=== PATIENT | female | born 1990 | race Caucasian/White ===

== ENCOUNTER 2016-12-18 19:39 | Emergency (ER) | payer BC ==
[~2016-12-18] VITALS: Ht 160 cm; Wt 88.6 kg
[~2016-12-18 19:39] MED LIST: ATIVAN 0.50.5 MG/TAB PO; NECON 0.5/35 351 TAB PO; TOPROL XL 25MG25 MG PO
[2016-12-18 19:41] VITALS: TEMP 98.3
[2016-12-18 21:17] LABS: BASO # 0.1 (0.0-0.2); BASO % 0.6 % (0.0-2.0); EOS # 0.1 (0.0-0.7); EOS % 1.1 % (0-4.0); GRAN # 4.2 (1.4-6.5); GRAN % 51.8 % (42.2-75.2); HEMATOCRIT 40.5 % (37.0-47.0); HEMOGLOBIN 13.9 g/dl (12.5-16.0); LYMPH # 3.4 (1.2-3.4); LYMPH % 41.5 % (20.0-51.0); MEAN CELL VOLUME 89 fl (80.0-100.0); MEAN CORPUSCULAR HEMOGLOBIN 30 pg (27.0-31.0); MEAN CORPUSCULAR HGB CONC 34 g/dl (33.0-37.0); MEAN PLATELET VOLUME 9.3 fl (7.4-10.4); MONO # 0.4 (0.1-0.6); MONO % 4.8 % (1.7-9.3); PLATELET COUNT 312 K/mm3 (130-400); RED BLOOD COUNT 4.57 M/mm3 (4.10-5.30); REDCELL DISTRIBUTION WIDTH-CV 11.8 % (11.5-14.5); WHITE BLOOD COUNT 8.1 K/mm3 (4.8-10.8)
[2016-12-18 21:32] LABS: ALANINE AMINOTRANSFERASE 24 U/L (9-52); ALBUMIN 4.7 gm/dL (3.5-5.0); ALKALINE PHOSPHATASE 94 U/L (50-136); ANION GAP 12 mmol/L (7-16); BILIRUBIN,TOTAL 0.8 mg/dL (0.0-1.0); BLOOD UREA NITROGEN 11 mg/dL (7-17); CALCIUM 9.6 mg/dL (8.4-10.2); CARBON DIOXIDE 27 mmol/L (22-30); CHLORIDE 100 mmol/L (98-107); CREATININE, serum 0.58 mg/dL (0.52-1.25); GLUCOSE 90 mg/dL (74-106); POTASSIUM 3.8 mmol/L (3.4-5.0); SODIUM 139 mmol/L (137-145); TOTAL PROTEIN 7.6 gm/dL (6.4-8.2)
[2016-12-18 21:41] LABS: C-REACTIVE PROTEIN < 0.5 mg/dL (0.0-0.9); TROPONIN-I < 0.012 ng/mL (0.000-0.034)
[2016-12-18 22:15] VITALS: BP 110/67; PULSE 70
== END 2016-12-18 22:15 | disposition home or self-care (01) ==
LOC: COL.ER 19:39
PROVIDERS: Family Medicine
DX: R07.89 Other chest pain (principal)

== ENCOUNTER → 2017-10-31 | Outpatient (CLI) | payer BC | LOC: MC.RAD 09:36 | DX: Z12.31 Encounter for screening mammogram for malignant neoplasm of breast (principal) ==

== ENCOUNTER 2018-02-09 11:29 | Emergency (ER) | payer BC ==
[~2018-02-09] VITALS: Ht 160 cm; Wt 88.2 kg
[2018-02-09 11:39] VITALS: BP 122/83; TEMP 98
[2018-02-09 12:24] LABS: COLLECTION METHOD CLEAN CATCH
[2018-02-09 12:43] LABS: PH 5 (5-8); SQUAMOUS EPITHELIAL None Seen /hpf; URINE APPEARANCE Clear; URINE BACTERIA None Seen /hpf; URINE BILIRUBIN Negative (NEGATIVE); URINE BLOOD 3+ (NEGATIVE); URINE COLOR Yellow; URINE GLUCOSE Negative (NEGATIVE); URINE KETONE Negative (NEGATIVE); URINE LEUKOCYTE ESTERASE Negative (NEGATIVE); URINE NITRATE Negative (NEGATIVE); URINE PROTEIN(semi-quant) Negative (NEGATIVE); URINE RBC >50 /hpf; URINE UROBILINOGEN Negative (NEGATIVE)
[2018-02-09 13:04] LABS: BASO # 0.1 (0.0-0.2); BASO % 0.6 % (0.0-2.0); EOS # 0.1 (0.0-0.7); EOS % 0.7 % (0-4.0); GRAN % 73.2 % (42.2-75.2); HEMATOCRIT 39.7 % (37.0-47.0); HEMOGLOBIN 13.6 g/dl (12.5-16.0); LYMPH # 2.3 (1.2-3.4); LYMPH % 20.6 % (20.0-51.0); MEAN CELL VOLUME 90 fl (80.0-100.0); MEAN CORPUSCULAR HEMOGLOBIN 31 pg (27.0-31.0); MEAN CORPUSCULAR HGB CONC 34 g/dl (33.0-37.0); MEAN PLATELET VOLUME 9.3 fl (7.4-10.4); MONO # 0.5 (0.1-0.6); MONO % 4.5 % (1.7-9.3); PLATELET COUNT 292 K/mm3 (130-400); REDCELL DISTRIBUTION WIDTH-CV 11.9 % (11.5-14.5)
[2018-02-09 13:13] LABS: ALANINE AMINOTRANSFERASE 23 U/L (9-52); ALBUMIN 4.1 gm/dL (3.5-5.0); ALKALINE PHOSPHATASE 61 U/L (50-136); ANION GAP 12 mmol/L (7-16); AST,SGOT 24 U/L (15-37); BLOOD UREA NITROGEN 14 mg/dL (7-17); C-REACTIVE PROTEIN < 0.5 mg/dL (0.0-0.9); CALCIUM 9.2 mg/dL (8.4-10.2); CARBON DIOXIDE 27 mmol/L (22-30); CHLORIDE 102 mmol/L (98-107); CREATININE, serum 0.59 mg/dL (0.52-1.25); GLUCOSE 85 mg/dL (74-106); POTASSIUM 3.8 mmol/L (3.4-5.0); SODIUM 141 mmol/L (137-145); TOTAL PROTEIN 7.8 gm/dL (6.4-8.2)
[2018-02-09 15:13] VITALS: PULSE 90
== END 2018-02-09 15:13 | disposition home or self-care (01) ==
LOC: COL.ER 11:29
PROVIDERS: Nurse Practitioner
DX: R42 Dizziness and giddiness (principal)

== ENCOUNTER → 2018-05-08 | Outpatient (CLI) | payer BC | LOC: COL.VAS 08:56 | DX: R25.2 Cramp and spasm (principal) ==

== ENCOUNTER 2019-06-08 20:01 | Observation (INO) | payer BC ==
[~2019-06-08] VITALS: Ht 160 cm; Wt 90.3 kg
[2019-06-08 20:45] LABS: BASO # 0.1 (0.0-0.2); BASO % 0.3 % (0.0-2.0); EOS # 0.1 (0.0-0.7); EOS % 0.9 % (0-4.0); GRAN # 10.8 (1.4-6.5); GRAN % 75.3 % (42.2-75.2); HEMATOCRIT 42.7 % (37.0-47.0); HEMOGLOBIN 14.8 g/dl (12.5-16.0); LYMPH # 2.8 (1.2-3.4); LYMPH % 19.3 % (20.0-51.0); MEAN CELL VOLUME 89 fl (80.0-100.0); MEAN CORPUSCULAR HEMOGLOBIN 31 pg (27.0-31.0); MEAN CORPUSCULAR HGB CONC 35 g/dl (33.0-37.0); MEAN PLATELET VOLUME 9.3 fl (7.4-10.4); MONO # 0.6 (0.1-0.6); MONO % 3.9 % (1.7-9.3); PLATELET COUNT 283 K/mm3 (130-400); RED BLOOD COUNT 4.81 M/mm3 (4.10-5.30); REDCELL DISTRIBUTION WIDTH-CV 12.2 % (11.5-14.5)
[2019-06-08 21:02] LABS: ALANINE AMINOTRANSFERASE 13 U/L (9-52); ALBUMIN 4.5 gm/dL (3.5-5.0); ALKALINE PHOSPHATASE 61 U/L (50-136); ANION GAP 12 mmol/L (7-16); AST,SGOT 23 U/L (15-37); BILIRUBIN,TOTAL 0.5 mg/dL (0.0-1.0); BLOOD UREA NITROGEN 11 mg/dL (7-17); CALCIUM 9.1 mg/dL (8.4-10.2); CARBON DIOXIDE 26 mmol/L (22-30); CHLORIDE 101 mmol/L (98-107); CREATININE, serum 0.58 (0.52-1.25); GLUCOSE 112 mg/dL (74-106); LIPASE 71 U/L (23-300); POTASSIUM 3.7 mmol/L (3.4-5.0); SODIUM 139 mmol/L (137-145); TOTAL PROTEIN 7.6 gm/dL (6.4-8.2)
[2019-06-08 21:08] LABS: C-REACTIVE PROTEIN < 0.5 mg/dL (0.0-0.9)
[2019-06-08 21:27] LABS: COLLECTION METHOD CLEAN CATCH
[2019-06-08 21:34] LABS: MUCOUS Present /lpf; PH 5 (5-8); URINE APPEARANCE Hazy; URINE BACTERIA None Seen /hpf; URINE BILIRUBIN Negative (NEGATIVE); URINE BLOOD Negative (NEGATIVE); URINE COLOR Yellow; URINE GLUCOSE Negative (NEGATIVE); URINE KETONE Negative (NEGATIVE); URINE LEUKOCYTE ESTERASE Negative (NEGATIVE); URINE NITRATE Negative (NEGATIVE); URINE PROTEIN(semi-quant) Negative (NEGATIVE); URINE RBC 0-2 /hpf; URINE UROBILINOGEN Negative (NEGATIVE)
[2019-06-09] VITALS (11 sets, daily range): BP systolic 100–131; BP diastolic 54–89; PULSE 72–88; TEMP 97.6–98.4
[2019-06-09] MEDS ORDERED: DULOXETINE HCL 40 MG (00:52)
--- NOTE | 2019-06-09 01:36 | NUR ---
PATIENT TO ROOM 322-2 AT 0020. ALERT AND ORIENTED. STANDBY ASSIST TRANSFER TO BED. STATES MILD PAIN TO RLQ, DULL AND ACHY BUT SHARP AT THE MOST DOMINATE SPOT. GIVEN MORPHINE 2MG IV PUSH. SEE ASSESSMENT. NO FURTHER NEEDS AT THIS TIME. VSS STABLE. WILL CONTINUE TO MONITOR.
--- NOTE | 2019-06-09 08:30 | NUR ---
Patient alert and oriented, answers questions appropriately. See assessment. Abdomen soft, non tender, non distended. Bowel sounds hyperactive x4 quads. +Flatus. C/o mild RLQ pain with palpation. No other c/o at this time.
--- NOTE | 2019-06-09 10:24 | NUR ---
Chlorhexadine shower completed.
--- NOTE | 2019-06-09 10:29 | NUR ---
tin worker met with patient and spouse to discuss discharge planning. Patient states she will return home with spouse upon discharge and denies difficulty obtaining her prescriptions. Patient states her primary care provider is Dr Carlson.
--- NOTE | 2019-06-09 11:04 | NUR ---
Initial visit; Patient and her thanked Seismic Engineer for looking in on them and offering prayer prior to Celestina's surgical procedure. Seismic Engineer wished them well.
--- NOTE | 2019-06-09 14:00 | NUR ---
Patient returns from PACU, assessment unchanged except lap sites to abdomen with bandaids intact. Bowel sounds hypoactive. Patient resting, no c/o pain.
--- NOTE | 2019-06-09 18:13 | NUR ---
Discharge instructions reviewed with patient and friend, verbalized understanding. Discharged via wheelchair to auto/home with family at 1745.
== END 2019-06-09 17:45 | disposition home or self-care (01) ==
LOC: COL.ER 20:01 → SURG 23:20
PROVIDERS: Physician Assistant; ADMIT Surgery
DX: K35.80 Unspecified acute appendicitis (principal); K38.8 Other specified diseases of appendix; F41.9 Anxiety disorder, unspecified; F32.9 Major depressive disorder, single episode, unspecified; Z79.899 Other long term (current) drug therapy; M54.6 Pain in thoracic spine; R20.0 Anesthesia of skin
CPT/HCPCS: G0378; J1100; J1170; J1885; J2270; J2405; J2543; J2550; J2704; J2710; J3010; J7030; Q9967

== ENCOUNTER → 2020-04-11 | Outpatient (CLI) | payer BC ==
[~2020-04-11] MED LIST changes: +DULOXETINE HCL 40 MG
== END ==
LOC: MC.RAD 02-29 15:30
DX: Z12.31 Encounter for screening mammogram for malignant neoplasm of breast (principal)

== ENCOUNTER 2021-01-05 10:47 | Emergency (ER) | payer BC ==
[~2021-01-05] VITALS: Ht 160 cm; Wt 78.6 kg
[2021-01-05 10:50] VITALS: TEMP 98.3
[2021-01-05 11:16] LABS: BASO % 0.5 % (0.0-2.0); EOS # 0.1 (0.0-0.7); EOS % 1.3 % (0-4.0); GRAN % 55.5 % (42.2-75.2); HEMATOCRIT 42.6 % (37.0-47.0); HEMOGLOBIN 14.6 g/dl (12.5-16.0); LYMPH % 35.9 % (20.0-51.0); MEAN CELL VOLUME 90 fl (80.0-100.0); MEAN CORPUSCULAR HEMOGLOBIN 31 pg (27.0-31.0); MEAN CORPUSCULAR HGB CONC 34 g/dl (33.0-37.0); MEAN PLATELET VOLUME 9.4 fl (7.4-10.4); MONO # 0.4 (0.1-0.6); MONO % 6.6 % (1.7-9.3); PLATELET COUNT 315 K/mm3 (130-400); RED BLOOD COUNT 4.72 M/mm3 (4.10-5.30); REDCELL DISTRIBUTION WIDTH-CV 11.8 % (11.5-14.5)
[2021-01-05 11:25] LABS: ALANINE AMINOTRANSFERASE 15 U/L (4-34); ALKALINE PHOSPHATASE 54 U/L (50-136); ANION GAP 10 mmol/L (7-16); AST,SGOT 28 U/L (15-37); BILIRUBIN,TOTAL 1.7 mg/dL (0.0-1.0); BLOOD UREA NITROGEN 13 mg/dL (7-17); CALCIUM 9.8 mg/dL (8.4-10.2); CARBON DIOXIDE 27 mmol/L (22-30); CHLORIDE 101 mmol/L (98-107); CREATININE, serum 0.63 (0.52-1.25); GLUCOSE 106 mg/dL (74-106); LIPASE 96 U/L (23-300); POTASSIUM 3.9 mmol/L (3.4-5.0); SODIUM 139 mmol/L (137-145); TOTAL PROTEIN 8.7 gm/dL (6.4-8.2)
[2021-01-05 11:38] LABS: TROPONIN-I < 0.012 ng/mL (0.000-0.035)
[2021-01-05 12:37] LABS: COLLECTION METHOD CLEAN CATCH
[2021-01-05 12:45] LABS: PH 7 (5-8); SQUAMOUS EPITHELIAL 0-2 /hpf; URINE APPEARANCE Clear; URINE BACTERIA Many /hpf; URINE BILIRUBIN Negative (NEGATIVE); URINE BLOOD Negative (NEGATIVE); URINE COLOR Straw; URINE GLUCOSE Negative (NEGATIVE); URINE KETONE Negative (NEGATIVE); URINE LEUKOCYTE ESTERASE Negative (NEGATIVE); URINE NITRATE Negative (NEGATIVE); URINE PROTEIN(semi-quant) Negative (NEGATIVE); URINE RBC 0-2 /hpf; URINE UROBILINOGEN Negative (NEGATIVE); URINE WBC 0-2 /hpf
[2021-01-05 15:54] VITALS: BP 93/66; PULSE 85
== END 2021-01-05 16:00 | disposition home or self-care (01) ==
LOC: COL.ER 10:47
PROVIDERS: Nurse Practitioner Primary Care
DX: F41.9 Anxiety disorder, unspecified (principal); R07.89 Other chest pain; I10 Essential (primary) hypertension
CPT/HCPCS: J1200; J2270

== ENCOUNTER → 2021-03-14 | Outpatient (CLI) | payer BC ==
[~2021-03-14] MED LIST changes: +LIPITOR20 MG PO; +NORVASC2.5 MG PO; +WELLBUTRIN XL150 MG PO
== END ==
LOC: COL.RAD 12:30
DX: G44.229 Chronic tension-type headache, not intractable (principal); D18.02 Hemangioma of intracranial structures
CPT/HCPCS: A9585

== ENCOUNTER → 2021-04-17 | Outpatient (CLI) | payer BC | LOC: COL.RAD 14:14 | DX: D18.00 Hemangioma unspecified site (principal); H53.9 Unspecified visual disturbance ==

== ENCOUNTER 2021-05-10 19:30 | Emergency (ER) | payer BC ==
[~2021-05-10] VITALS: Ht 160 cm; Wt 79.5 kg
[~2021-05-10 19:30] MED LIST changes: -LIPITOR20 MG PO; -NORVASC2.5 MG PO; -WELLBUTRIN XL150 MG PO
[2021-05-10] MEDS ORDERED: NORVASC2.5 MG PO (19:47)
[2021-05-10] MEDS ORDERED: LIPITOR20 MG PO (19:47)
[2021-05-10 19:48] VITALS: TEMP 98.2
[2021-05-10] MEDS ORDERED: WELLBUTRIN XL150 MG PO (19:48)
[2021-05-10 22:06] VITALS: BP 131/88; PULSE 87
== END 2021-05-10 22:06 | disposition home or self-care (01) ==
LOC: COL.ER 19:30
DX: G43.909 Migraine, unspecified, not intractable, without status migrainosus (principal); I10 Essential (primary) hypertension; Z79.899 Other long term (current) drug therapy
CPT/HCPCS: J0780; J1100; J1200; J1885

== ENCOUNTER → 2021-08-20 | Outpatient (CLI) | payer BC ==
[~2021-08-20] MED LIST changes: +LIPITOR20 MG PO; +NORVASC2.5 MG PO; +WELLBUTRIN XL150 MG PO
== END ==
LOC: COL.RAD 06:59
DX: H53.9 Unspecified visual disturbance (principal)

== ENCOUNTER → 2022-02-26 | Outpatient (CLI) | payer BC | LOC: MC.RAD 09:08 | DX: Z12.31 Encounter for screening mammogram for malignant neoplasm of breast (principal); Z80.3 Family history of malignant neoplasm of breast ==